=== PATIENT | male | born 1995 | race Caucasian/White ===

== ENCOUNTER 2018-01-30 20:54 | Emergency (ER) | payer SELFPAY, OTHER ==
[2018-01-30] MEDS: LIDOCAINE 1% (MDV) 10 ML INJ INJ (22:24)
== END 2018-01-30 22:42 | disposition home or self-care (01) ==
LOC: FTE 20:54
DX: L02.416 Cutaneous abscess of left lower limb (principal)
CPT/HCPCS: 10060; 99283-25